=== PATIENT | female | born 2000 | race Caucasian/White ===

== ENCOUNTER 2018-03-03 12:23 | Emergency (ER) | payer BC ==
[2018-03-03 12:37] VITALS: BP 119/59; PULSE 75
--- NOTE | 2018-03-03 14:26 | PDOC ---
History of Present Illness - General Chief Complaint: Injury Stated Complaint: LT FOOT PAIN Time Seen by Provider: 03/03/18 12:56 History Source: Patient Exam Limitations: No Limitations - History of Present Illness Initial Comments: 03/03/18 14:56 Patient is a 17-year-old female who presents emergency Department with 1 day of left foot pain. Patient states she was dancing when she slipped and rolled her ankle. She also fell. Denies hitting her head or LOC. She states that when she woke up this morning she had a lot of swelling and pain to the lateral aspect of the left foot. She states it hurts to walk. Denies numbness and tingling to the extremity, fever, weakness. Past History - Travel Traveled outside of the country in the last 30 days: No Close contact w/someone who was outside of country & ill: No - Past Medical History Allergies/Adverse Reactions: Allergies Allergy/AdvReac Type Severity Reaction Status Date / Time No Known Allergies Allergy Verified 03/03/18 12:34 Home Medications: Ambulatory Orders NK [No Known Home Medication] 03/03/18 COPD: No - Suicide/Smoking/Psychosocial Hx Smoking History: Current some day smoker Have you smoked in the past 12 months: Yes Information on smoking cessation initiated: No Review of Systems - Review of Systems Able to Perform ROS?: Yes Comments:: 03/03/18 14:49 CONSTITUTIONAL: Absent: fever, chills, diaphoresis, generalized weakness, malaise, loss of appetite MUSCULOSKELETAL: Present: L foot pain Absent: arthralgia, joint swelling SKIN: Absent: rash, itching, pallor NEUROLOGIC: Absent: headache, focal weakness or paresthesias, dizziness, unsteady gait, seizure, mental status changes, bladder or bowel incontinence PSYCHIATRIC: Absent: anxiety, depression, suicidal or homicidal ideation, hallucinations. Is the patient limited Polish proficient: No *Physical Exam - Vital Signs Last Vital Signs Temp Pulse Resp BP Pulse Ox 75 14 119/59 L 99 03/03/18 12:35 03/03/18 12:35 03/03/18 12:35 03/03/18 12:35 - Physical Exam Comments: 03/03/18 14:51 GENERAL: The patient is awake, alert, and fully oriented, in no acute distress. HEAD: Normal with no signs of trauma. EYES: Pupils equal, round and reactive to light, extraocular movements intact, sclera anicteric, conjunctiva clear. EXTREMITIES: TTP to the L lateral foot. Pain with calcaneal squeeze. ROM limited of the L foot d/t pain. Minimal swelling noted along the lateral aspect of the L foot. Normal range of motion at all other joints. NEUROLOGICAL: Normal speech, normal gait. PSYCH: Normal mood, normal affect. SKIN: Warm, Dry, normal turgor, no rashes or lesions noted. Procedures - Splinting Splint Location: Left: Foot Pre-Proc Neuro Vasc Exam: normal Pre-Made Type: surgical shoe Post-Proc Neuro Vasc Exam: unchanged from pre-exam Tru Bandage: no ED Treatment Course - ADDITIONAL ORDERS Additional order review: Laboratory Results 03/03/18 13:00 Urine HCG, Qual Negative - RADIOLOGY Radiology Studies Ordered: Category Date Time Status ANKLE & FOOT-LEFT* [RAD] Stat Radiology 03/03/18 12:57 Taken Medical Decision Making - Medical Decision Making 03/03/18 14:59 Patient is a 17-year-old female no past medical history who presents in wrist department with 1 day of left foot pain status post fall yesterday. -On exam patient with tenderness to the calcaneal bone. Minimal swelling to the lateral aspect of the foot. -X-ray read shows a fracture to the distal calcaneus. Patient denies ever breaking her foot in the past. I suspect that this is a new fracture. -Patient placed in hard soled shoe and made it very as tolerated. -For the follow-up given. -Discharge home -I discussed the physical exam findings, ancillary test results and final diagnoses with the patient. I answered all of the patient's questions. The patient was satisfied with the care received and felt comfortable with the discharge plan and treatment plan. The Patient agrees to follow up with the primary care physician/specialist within 24-72 hours. Return precautions were given. *DC/Admit/Observation/Transfer Diagnosis at time of Disposition: Calcaneal fracture Qualifiers: Encounter type: initial encounter Calcaneus location: unspecified portion of calcaneus Fracture type: closed Fracture alignment: nondisplaced Laterality: left Qualified Code(s): S92.002A - Unspecified fracture of left calcaneus, initial encounter for closed fracture - Discharge Dispostion Disposition: HOME Condition at time of disposition: Stable Decision to Admit order: No - Referrals Referrals: Cecil Rea [Primary Care Provider] - Doug Metcalf MD [Staff Physician] - - Patient Instructions Printed Discharge Instructions: DI for Foot Fracture Additional Instructions: You have a foot fracture. Please wear the surgical shoe for support. you may take it off to sleep or shower. You may weight-bear as tolerated. If you are in too much pain walking please use the crutches. Please ice the foot. He may take Motrin 600 mg every 6 hours as needed for pain. Follow-up with orthopedics this week. Referral has been provided free. Return to the emergency department for worsening pain, numbness and tingling in the extremity, or if you've any changes in your symptoms. - Post Discharge Activity Forms/Work/School Notes: Back to Work
== END 2018-03-03 14:55 | disposition home or self-care (01) ==
LOC: JERFT 12:23
PROC: 2W3TXYZ Immobilization of Left Foot using Other Device (ICD-10-PCS; principal; 2018-03-03)
DX: S92.002A Unspecified fracture of left calcaneus, initial encounter for closed fracture (principal); W01.0XXA Fall on same level from slipping, tripping and stumbling without subsequent striking against object, initial encounter; Y93.41 Activity, dancing; Y92.89 Other specified places as the place of occurrence of the external cause; Y99.8 Other external cause status
CPT/HCPCS: 73610-TC-LT-FY; 73630-TC-LT; 84703; 99281-25

== ENCOUNTER 2019-05-06 17:58 | Emergency (ER) | payer BC ==
--- NOTE | 2019-05-06 18:05 | PDOC ---
Attending Attestation - Resident Resident Name: ChristinaTootie - ED Attending Attestation I have performed the following: I have examined & evaluated the patient, The case was reviewed & discussed with the resident, I agree w/resident's findings & plan, Exceptions are as noted - HPI HPI: 05/06/19 18:57 18yo female with pmhx of gerd presents for eval of midsternal cp. 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 Denies radiation. States she started to feel nervous and felt sob. Pt denies pleuritic cp. No recent f/c. No cough. No sore throat or rhinorrhea. No leg swelling/calf cramping. No abd pain. no n/v/d. Pt does vape tobacco products. Pt arrives with a co-worker and states pain was 10/10, but has diminished to 5/10 without any interventions. - Physicial Exam PE: 05/06/19 18:59 Gen: aaox3, nad heent: posterior pharynx clear, perrl, eomi neck: supple heart: +s1s2 reg lungs: cta b/l abd: soft, nt/nd +bs ext: no c/c/e, no calf ttp - Medical Decision Making 05/06/19 19:00 a/p: 18yo female with midsternal cp -suspect msk pain -reproducible with palpation and anterior chest wall ttp -no acute findings on ekg -xray ordered -give tylenol for pain 05/06/19 19:01 pt signed out to the oncoming ED physician pending xray and re-eval Heart Score/ECG Review - ECG Intrepretation Comment:: 05/06/19 19:01 sinus at 63, nl axis, nl interval, no acute st/t wave findings
[2019-05-06 18:12] VITALS: BP 128/84; PULSE 73; TEMP 98; BMI 25.6
--- NOTE | 2019-05-06 18:28 | PDOC ---
History of Present Illness - General Chief Complaint: Pain Stated Complaint: REPRODUCIBLE CHEST PAIN WITH PAIN FELT SHORT OF Time Seen by Provider: 05/06/19 18:01 - History of Present Illness Initial Comments: Dorie Minor is a 18yo woman with no known medical history who presents reporting acute onset of severe mid-sternal and right chest pain at 5pm today. 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 When the pain began, she also started to feel short of breath. The pain was initially 10/10, non-radiating, and felt like pressure. It was severe for about 30 minutes and has since started to improve, now 5/10. She denies any associated nausea, sweating, or lightheadedness. 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 She endorses frequent heartburn, which has not been evaluated or treated, as well as frequent vaping for the past year. Past History - Past Medical History Allergies/Adverse Reactions: Allergies Allergy/AdvReac Type Severity Reaction Status Date / Time CATS Allergy Intermediate Hives Uncoded 05/06/19 18:09 Home Medications: Ambulatory Orders NK [No Known Home Medication] 05/06/19 COPD: No Other medical history: DENIES - Psycho Social/Smoking Cessation Hx Smoking History: Current every day smoker Have you smoked in the past 12 months: Yes Information on smoking cessation initiated: No Hx Alcohol Use: No Drug/Substance Use Hx: No Review of Systems - Review of Systems Comments:: General: No fevers, no chills, no weight or appetite change, no malaise HEENT: No changes in vision, no changes in hearing, no congestion, no sore throat CV: + chest pain, no palpitations, no LE edema Pulm: + SOB (resolved), no cough, no wheezing GI: No nausea or vomiting, no change in bowel habits, no melena : No frequency, no urgency, no dysuria Musc: No back pain, no joint swelling, no recent injury Skin: No rash, no lesions, no erythema Endo: No excessive thirst, no heat/cold intolerance Heme: No unusual bruising or bleeding, no swollen glands Neuro: No syncope, no numbness/tingling, no focal weakness Vasc: No claudication Psych: No recent change in mood, no SI or HI *Physical Exam - Vital Signs Last Vital Signs Temp Pulse Resp BP Pulse Ox 98 F 73 16 128/84 100 05/06/19 17:59 05/06/19 17:59 05/06/19 17:59 05/06/19 17:59 05/06/19 17:59 - Physical Exam General: Comfortable, no acute distress HEENT: PERRL, EOMI, MMM, voice normal, normal neck ROM Cards: RRR, no murmur appreciated. TTP over right upper chest. Pulm: Comfortable on room air, clear to auscultation bilaterally. No wheezing or crackles Abd: Soft, nontender, nondistended Ext: Atraumatic. No LE edema. ROM intact. WWP Skin: Normal color, no rashes or lesions Neuro: A&Ox3, CN grossly intact, normal speech, motor/sensory grossly intact and symmetric Psych: Mood appropriate to situation Medical Decision Making - Medical Decision Making 05/06/19 18:32 Dorie Minor is a 18yo woman with no known medical history who presents reporting acute onset of 10/10, non-radiating, pressure-like mid-sternal and right chest pain at 5pm today that has improved now to 5/10. She reports subsequent anxiety and SOB, both of which have since resolved. She denies any other associated symptoms but endorses frequent heartburn and vaping. - Most likely musculoskeletal, possibly acid reflux, possibly anxiety. Unlikely cardiac or pulmonary given that pt is a young woman with no underlying complaints. - No respiratory symptoms or fever suggesting pneumonia. No dyspnea suggesting vaping-related injury - EKG, CXR for evaluation - Acetaminophen, maalox/lidocaine for symptoms 05/06/19 18:39 - EKG completed. NSR with sinus arrhythmia. HR 63, normal axis, normal intervals. No ST or t-wave abnormalities 05/06/19 19:08 - Patient signed out to Dr Helton for the remainder of her ED care Discussed with Dr Sherley Vasquez PGY2 Discharge - Discharge Information Problems reviewed: Yes Clinical Impression/Diagnosis: Chest pain Qualifiers: Chest pain type: unspecified Qualified Code(s): R07.9 - Chest pain, unspecified Condition: Stable - Admission No - Follow up/Referral Referrals: [facility] [place] [Provider Group] - Patient Discharge Instructions Patient Printed Discharge Instructions: DI for Chest Pain Additional Instructions: Discharge Instructions: You were seen in the emergency department for chest pain. Your EKG and chest pain did not show any concerning findings. Home Care and Follow Up: - You may use over the counter medications as needed for pain at home. 650- 1000mg acetaminophen (Tylenol) or 600mg ibuprofen (Motrin or Advil) can be used every 6-8 hours. If needed for continued pain, these medications may be alternated every 3-4 hours. For example, if you take ibuprofen at 9am, you may take acetaminophen at noon, ibuprofen at 3pm, etc. - It is strongly recommended that you take ibuprofen with food to help prevent stomach irritation. - You reported frequent heartburn. Consider taking an acid medication such as Pepcid or Xantac, available over the counter, every day. This should be taken first thing in the morning 30-60 minutes before any food or medications. - Try using an ice pack for 20 minutes every hour or a heating pad for additional pain control. These should NOT be used over the lidocaine patch, but you may place them over the areas of pain while the patch is off. - Do not stop moving around. As much as you can tolerate, continue to do light exercise and stretching exercises. Increase your activity level as much as you can tolerate daily. - If your pain does not improve over the next week, see your regular doctor for follow up. If you need to establish care with a new doctor, you have been given contact information for the [facility] clinic. - Seek immediate medical care if you have significant worsening of your symptoms , severe pain, difficultly breathing, or any other medical emergency. - Post Discharge Activity
[2019-05-06] MEDS ORDERED: ACETAMINOPHEN 325 MG TABLET (FP) PO ONE (18:39)
[2019-05-06] MEDS ORDERED: LIDOCAINE VISCOUS 2% ORAL/TOP 20 ML UNIT-DOSE CUP MM ONE ×2 (18:43)
[2019-05-06] MEDS ORDERED: MAG HYDROX/AL HYDROX/SIMETH 30 ML UNIT-DOSE CUP PO ONE (18:43)
[2019-05-06] MEDS ORDERED: IBUPROFEN 600 MG TABLET (FP) PO ONE (19:02)
[2019-05-06 20:12] LABS: CALCIUM 9.4 mg/dl (8.5-10); CREATININE 0.7 mg/dl (0.55-1.3); POTASSIUM 3.9 mmol/L (3.5-5.1)
--- NOTE | 2019-05-07 09:26 | EKG ---
Test Reason : Blood Pressure : / mmHG Vent. Rate : 063 BPM Atrial Rate : 063 BPM P-R Int : 134 ms QRS Dur : 096 ms QT Int : 402 ms P-R-T Axes : 033 052 046 degrees QTc Int : 411 ms NORMAL SINUS RHYTHM WITH SINUS ARRHYTHMIA NORMAL ECG NO PREVIOUS ECGS AVAILABLE Confirmed by Maximiliano Eng MD ([id number]) on 05/07/2019 9:26:32 AM Referred By: Confirmed By:Maximiliano Eng MD
== END 2019-05-06 21:21 | disposition home or self-care (01) ==
LOC: FER 17:58
DX: R07.9 Chest pain, unspecified (principal); J30.81 Allergic rhinitis due to animal (cat) (dog) hair and dander; F17.210 Nicotine dependence, cigarettes, uncomplicated
CPT/HCPCS: 36415; 71046-TC-FY; 80048; 84703; 85379; 93005; 99283-25